=== PATIENT | female | born 1940 | race Caucasian/White ===

== ENCOUNTER → 2021-01-13 11:05 | Outpatient (CLI) | payer MEDICARE, OTHER, SELFPAY ==
--- NOTE | 2021-01-13 11:15 | DI.RAD.S_ITS ---
PROCEDURE: XR CHEST 2V INDICATIONS: PNEUMONIA/COPD TECHNIQUE: 2 views of the chest were acquired. COMPARISON: None. FINDINGS: Surgical changes and devices: None. Lungs and pleura: Lungs are edematous. Small bilateral subpulmonic pleural effusions and no pneumothorax. Mediastinum: Mediastinal contours are normal. Heart size is globally mildly enlarged. Bones and chest wall: No suspicious bony abnormalities. Soft tissues appear unremarkable. IMPRESSION: The current appearance is that of mild cardiomegaly and what appears to be acute CHF. However, atypical pneumonia conceivably could produce this appearance. Please correlate clinically. Dictated by: Quincy Weaver M.D. on 01/13/2021 at 12:54 Approved by: Quincy Weaver M.D. on 01/13/2021 at 12:56
== END ==
PROVIDERS: PCP Family Medicine; Referring Provider Nurse Practitioner; Visit Provider Nurse Practitioner
DX: J18.9 Pneumonia, unspecified organism (principal); J44.9 Chronic obstructive pulmonary disease, unspecified
CPT/HCPCS: 71046